=== PATIENT | female | born 1960 | race Two or more races ===

== ENCOUNTER 2022-09-25 12:48 | Inpatient (IN) | payer MEDICAID, OTHER ==
[~2022-09-25] VITALS: Ht 144.8 cm; Wt 92.7 kg
[2022-09-25] MEDS: SODIUM CHLOR 0.9% PF (SALINE LOCK) 10ML VIAL/SYR IV SCH (01:40)
[2022-09-25 14:42] LABS: Basophils # (auto) 0.1 10 ^3/uL (0-0.2); Eosinophils # (auto) 0.1 10 ^3/uL (0-0.8)
[2022-09-25 14:44] LABS: Basophils % (auto) 0.9 % (0.0-2.0); Eosinophils % (auto) 1.2 % (0.0-7.0); Hematocrit 39.9 % (36.0-46.0); Hemoglobin 12.6 g/dL (12.2-16.2); Lymphocytes # (auto) 1.3 10 ^3/uL (0.4-5.4); Lymphocytes % (auto) 12.1 % (10.0-50.0); Mean Corpuscular Hemoglobin 24.5 pg (28.0-32.0); Mean Corpuscular Hgb Conc. 31.7 g/dL (32.0-36.0); Mean Corpuscular Volume 77.5 fL (80.0-100.0); Monocytes # (auto) 0.5 10 ^3/uL (0-1.3); Monocytes % (auto) 4.7 % (0.0-12.0); Neutrophils # (auto) 8.7 10 ^3/uL (1.6-8.6); Neutrophils % (auto) 81.1 % (37.0-80.0); Nucleated Red Blood Cells % 0.1 %; Red Blood Cells 5.15 10^6/uL (4.0-5.20); White Blood Cell 10.7 10^3/uL (4.4-10.8)
[2022-09-25 14:55] LABS: Albumin 3.4 g/dL (3.4-5.0); Anion Gap 10 (5-15); Blood Urea Nitrogen 22 mg/dL (7-18); Calcium 9.3 mg/dL (8.5-10.1); Carbon Dioxide 26 mmol/L (21-32); Chloride 103 mmol/L (98-107); Glucose 198 mg/dL (74-106); Sodium 139 mmol/L (136-145)
[2022-09-25 14:58] LABS: Alanine Aminotransferase 58 U/L (13-56); Aspartate Aminotransferase 29 U/L (15-37); GFR African American 84 mL/min; GFR Non-African American 69 mL/min
[2022-09-25 15:01] LABS: Alkaline Phosphatase 59 U/L (45-117); Bilirubin, Total 0.5 mg/dL (0.2-1.0)
[2022-09-25 15:02] LABS: Lactic Acid w/Reflex 2.5 mmol/L (0.4-2.0)
[2022-09-25 15:18] LABS: Urine Bacteria FEW /hpf (None Seen); Urine Blood Negative /uL (Negative); Urine Hyaline Cast MOD /lpf (0 - 2); Urine Mucus FEW (None Seen); Urine Specific Gravity 1.027 (1.001-1.035); Urine WBC 17 /hpf (0 - 5)
[2022-09-25] MEDS ORDERED: cefTRIAXone 1GM/50ML D5W 50 ML IV ONE (21:45)
[2022-09-25] MEDS ORDERED: AZITHROMYCIN 500MG/ 250ML 250 ML IV ONE (21:45)
[2022-09-25] MEDS ORDERED: MORPHINE SULFATE INJ 2 MG/ml SYRG IV PRN (21:45)
[2022-09-25] MEDS ORDERED: FUROSEMIDE 40 MG/4 ML VIAL IV ONE (21:45)
[2022-09-25] MEDS ORDERED: DOCUSATE SOD 100 MG CAP PO PRN (21:45)
[2022-09-25] MEDS ORDERED: ONDANSETRON HCL 4 MG/2 ML VIAL IV PRN (21:45)
[2022-09-25] MEDS ORDERED: NITROGLYCERIN 0.4 MG SL TAB SL PRN (21:45)
[2022-09-25] MEDS ORDERED: DEXTROSE (50%) 50ML SYRG IV PRN (21:45)
[2022-09-25] MEDS: ACCU-CHEK COMFORT CURVE STRIP VI SCH (22:00)
[2022-09-25] MEDS ORDERED: InsuLIN REG 1unit/0.01ml Soln (100units/ml) SC SCH (22:00)
[2022-09-25] MEDS ORDERED: CARVEDILOL 3.125 MG TAB PO ONE (22:15)
[2022-09-26] VITALS (7 sets, daily range): BP systolic 90–117; BP diastolic 62–97
[2022-09-26] MEDS: FAMOTIDINE (10MG/ML) 2ML VL IV SCH ×3 (00:03→22:04)
[2022-09-26] MEDS: ASCORBIC ACID 500 MG TAB PO SCH ×2 (00:04→11:10)
[2022-09-26] MEDS ORDERED: PRAV20TA3 PO (04:13)
[2022-09-26] MEDS ORDERED: METF-370 PO (04:13)
[2022-09-26] MEDS ORDERED: DULO60CA PO (04:13)
[2022-09-26] MEDS ORDERED: ASPI-543 PO (04:13)
[2022-09-26] MEDS ORDERED: LISI20TA28 PO (04:13)
[2022-09-26] MEDS ORDERED: LETR2.5T6 PO (04:13)
[2022-09-26] MEDS ORDERED: INFLUENZA QUAD 2022-2023 0.5 ML SYRG IM ONE (04:15)
[2022-09-26] MEDS: SODIUM CHLOR 0.9% PF (SALINE LOCK) 10ML VIAL/SYR IV SCH ×3 (05:35→22:01)
[2022-09-26] MEDS: InsuLIN REG 1unit/0.01ml Soln (100units/ml) SC SCH ×3 (06:27→19:30)
[2022-09-26] MEDS: ACCU-CHEK COMFORT CURVE STRIP VI SCH ×4 (06:27→22:01)
[2022-09-26 07:22] LABS: Basophils # (auto) 0.1 10 ^3/uL (0-0.2); Basophils % (auto) 0.5 % (0.0-2.0); Eosinophils # (auto) 0 10 ^3/uL (0-0.8); Eosinophils % (auto) 0.3 % (0.0-7.0); Hematocrit 37.7 % (36.0-46.0); Hemoglobin 11.8 g/dL (12.2-16.2); Lymphocytes # (auto) 1.2 10 ^3/uL (0.4-5.4); Lymphocytes % (auto) 8.7 % (10.0-50.0); Mean Corpuscular Hemoglobin 24.3 pg (28.0-32.0); Mean Corpuscular Hgb Conc. 31.2 g/dL (32.0-36.0); Monocytes # (auto) 0.6 10 ^3/uL (0-1.3); Monocytes % (auto) 4.7 % (0.0-12.0); Neutrophils # (auto) 11.3 10 ^3/uL (1.6-8.6); Neutrophils % (auto) 85.8 % (37.0-80.0); Nucleated Red Blood Cells % 0.1 %; Red Blood Cells 4.83 10^6/uL (4.0-5.20); Red Cell Distribution Width 15.9 % (11.8-14.3); White Blood Cell 13.2 10^3/uL (4.4-10.8)
[2022-09-26 07:34] LABS: Potassium 4.7 mmol/L (3.5-5.1)
[2022-09-26 07:38] LABS: BUN/Creatinine Ratio 25.5; Calcium 8.8 mg/dL (8.5-10.1)
[2022-09-26 07:40] LABS: Bilirubin, Total 0.5 mg/dL (0.2-1.0); Total Protein 6.7 g/dL (6.4-8.2)
[2022-09-26] MEDS ORDERED: cefTRIAXone 1GM/50ML D5W 50 ML IV SCH (09:00)
[2022-09-26] MEDS ORDERED: AZITHROMYCIN 500MG/ 250ML 250 ML IV SCH (10:00)
[2022-09-26] MEDS ORDERED: ZINC SULFATE 220mg CAP or TAB PO SCH (10:00)
[2022-09-26] MEDS: ENOXAPARIN SOD 40 MG/0.4 ML SYRINGE SC SCH (11:12)
[2022-09-26] MEDS: CARVEDILOL 3.125 MG TAB PO SCH ×2 (11:12→22:04)
[2022-09-26] MEDS: FUROSEMIDE 40 MG/4 ML VIAL IV SCH (11:13)
[2022-09-26] MEDS ORDERED: metOLazone 5 MG TAB PO ONE (13:00)
[2022-09-26] MEDS ORDERED: IOHEXOL 350 MG/ML 100ML IJ ONE (15:45)
[2022-09-26] MEDS: PIPERACILLIN-TAZOB 3.375GM 100 ML IV SCH (18:39)
[2022-09-27] MEDS: PIPERACILLIN-TAZOB 3.375GM 100 ML IV SCH ×4 (00:37→18:06)
[2022-09-27 05:00] VITALS: BP 95/64
[2022-09-27 05:55] LABS: Basophils # (auto) 0.1 10 ^3/uL (0-0.2); Eosinophils # (auto) 0.3 10 ^3/uL (0-0.8); Hemoglobin 11.5 g/dL (12.2-16.2); Lymphocytes # (auto) 2.3 10 ^3/uL (0.4-5.4); Neutrophils # (auto) 6.2 10 ^3/uL (1.6-8.6); White Blood Cell 9.6 10^3/uL (4.4-10.8)
[2022-09-27 05:57] LABS: Basophils % (auto) 0.9 % (0.0-2.0); Eosinophils % (auto) 3.3 % (0.0-7.0); Hematocrit 36.1 % (36.0-46.0); Lymphocytes % (auto) 24.3 % (10.0-50.0); Mean Corpuscular Hemoglobin 24.5 pg (28.0-32.0); Mean Corpuscular Hgb Conc. 31.9 g/dL (32.0-36.0); Mean Corpuscular Volume 76.9 fL (80.0-100.0); Monocytes # (auto) 0.6 10 ^3/uL (0-1.3); Monocytes % (auto) 6.2 % (0.0-12.0); Neutrophils % (auto) 65.3 % (37.0-80.0); Nucleated Red Blood Cells % 0.4 %; Red Cell Distribution Width 15.9 % (11.8-14.3)
[2022-09-27] MEDS: SODIUM CHLOR 0.9% PF (SALINE LOCK) 10ML VIAL/SYR IV SCH ×3 (06:11→21:05)
[2022-09-27] MEDS: ACCU-CHEK COMFORT CURVE STRIP VI SCH ×4 (06:12→21:07)
[2022-09-27 06:21] LABS: BUN/Creatinine Ratio 27.6; Calcium 8.7 mg/dL (8.5-10.1); Potassium 3.3 mmol/L (3.5-5.1)
[2022-09-27] MEDS: InsuLIN REG 1unit/0.01ml Soln (100units/ml) SC SCH ×3 (06:46→18:01)
[2022-09-27 09:00] VITALS: BP 116/77
[2022-09-27] MEDS: FAMOTIDINE (10MG/ML) 2ML VL IV SCH ×2 (09:40→21:06)
[2022-09-27] MEDS: FUROSEMIDE 40 MG/4 ML VIAL IV SCH (09:40)
[2022-09-27] MEDS: CARVEDILOL 3.125 MG TAB PO SCH ×2 (09:41→21:06)
[2022-09-27] MEDS: ENOXAPARIN SOD 40 MG/0.4 ML SYRINGE SC SCH (09:41)
[2022-09-27] MEDS ORDERED: POTASSIUM EFFERVESENT TAB 25 MEQ PO ONE (12:30)
[2022-09-27 13:00] VITALS: BP 112/83
[2022-09-27 14:36] LABS: INR 1.18 (0.9-1.15)
[2022-09-27 17:00] VITALS: BP 105/69
[2022-09-27] MEDS: POTASSIUM CHL 20 Meq TABLET PO SCH (21:07)
[2022-09-27] MEDS: SACUBITRIL-VALSARTAN 24mg/26mg TAB PO SCH (21:07)
[2022-09-27 22:00] VITALS: BP 124/75
[2022-09-28] VITALS (16 sets, daily range): BP systolic 101–136; BP diastolic 69–93
[2022-09-28] MEDS: PIPERACILLIN-TAZOB 3.375GM 100 ML IV SCH ×3 (00:03→12:38)
[2022-09-28] MEDS: SODIUM CHLOR 0.9% PF (SALINE LOCK) 10ML VIAL/SYR IV SCH ×2 (05:02→16:06)
[2022-09-28 05:37] LABS: INR 1.24 (0.9-1.15)
[2022-09-28 05:42] LABS: Calcium 8.5 mg/dL (8.5-10.1); Potassium 3.7 mmol/L (3.5-5.1)
[2022-09-28 05:45] LABS: BUN/Creatinine Ratio 26.5
[2022-09-28] MEDS: InsuLIN REG 1unit/0.01ml Soln (100units/ml) SC SCH ×2 (06:51→12:09)
[2022-09-28] MEDS: ACCU-CHEK COMFORT CURVE STRIP VI SCH ×2 (06:51→12:06)
[2022-09-28] MEDS ORDERED: IODIXANOL 320MG/ML 100ML BTL IV ONE (08:38)
[2022-09-28] MEDS ORDERED: fentaNYL CITRATE 100 MCG/2 ML VL ONE (08:42)
[2022-09-28] MEDS ORDERED: ANGIOMAX 250 MG VIAL IV ONE (08:42)
[2022-09-28] MEDS ORDERED: SODIUM CHL 0.9% 0 ML ONE (08:42)
[2022-09-28] MEDS ORDERED: MIDAZOLAM HCL 2MG/2ML 2ml VIAL (1mg/ml) ONE (08:42)
[2022-09-28] MEDS ORDERED: HEPARIN SODIUM (PORCINE) 5000 UNITS/ML 1ML VIAL ONE (08:42)
[2022-09-28] MEDS ORDERED: VERAPAMIL 2.5MG/ML INJ 2ML VIAL IV ONE (08:43)
[2022-09-28] MEDS: POTASSIUM CHL 20 Meq TABLET PO SCH (10:00)
[2022-09-28] MEDS: SACUBITRIL-VALSARTAN 24mg/26mg TAB PO SCH (10:00)
[2022-09-28] MEDS: ENOXAPARIN SOD 40 MG/0.4 ML SYRINGE SC SCH (10:00)
[2022-09-28] MEDS: CARVEDILOL 3.125 MG TAB PO SCH (10:00)
[2022-09-28] MEDS: FAMOTIDINE (10MG/ML) 2ML VL IV SCH (10:00)
[2022-09-28] MEDS: FUROSEMIDE 40 MG/4 ML VIAL IV SCH (10:00)
[2022-09-28] MEDS ORDERED: CAR3125T PO (15:36)
[2022-09-28] MEDS ORDERED: AMOX500T86 PO (15:36)
[2022-09-28] MEDS ORDERED: SACU1TAB PO (15:36)
[2022-09-28] MEDS ORDERED: EMPA1TAB PO (15:36)
[2022-09-28] MEDS ORDERED: FURO1TAB31 PO (15:43)
[2022-09-29] MEDS ORDERED: EMPAGLIFLOZIN 10 MG TAB PO SCH (07:00)
[2022-09-29 09:13] LABS: Hepatitis B Surface Antibody Negative (Negative)
[2022-09-29 11:41] LABS: Hepatitis C Antibody Negative (Negative)
== END 2022-09-28 18:10 | disposition home or self-care (01) | DRG 192 ==
LOC: ER 12:48 → OVERFLOW 21:40 → TELE-EAST 09-26 01:37
PROVIDERS: ADMIT Nurse Practitioner Family; ATTEND Hospitalist
PROC: 3E02340 Introduction of Influenza Vaccine into Muscle, Percutaneous Approach (ICD-10-PCS; 2022-09-26)
PROC: B2111ZZ Fluoroscopy of Multiple Coronary Arteries using Low Osmolar Contrast (ICD-10-PCS; principal; 2022-09-28)
DX: I11.0 Hypertensive heart disease with heart failure (principal); J96.01 Acute respiratory failure with hypoxia; I42.8 Other cardiomyopathies; E11.65 Type 2 diabetes mellitus with hyperglycemia; Z20.822 Contact with and (suspected) exposure to COVID-19; N39.0 Urinary tract infection, site not specified; C50.919 Malignant neoplasm of unspecified site of unspecified female breast; E66.9 Obesity, unspecified; R00.0 Tachycardia, unspecified; Z79.899 Other long term (current) drug therapy; Z85.3 Personal history of malignant neoplasm of breast; Z90.710 Acquired absence of both cervix and uterus; Z83.3 Family history of diabetes mellitus; Z79.82 Long term (current) use of aspirin; Z68.41 Body mass index [BMI] 40.0-44.9, adult; Z23 Encounter for immunization; I50.21 Acute systolic (congestive) heart failure
CPT/HCPCS: 36415; 71045; 71275; 76604; 80048; 80053; 81001; 82962; 83036; 83605; 83880; 84484; 85025; 85379; 85610; 85730; 86706; 86803; 87040; 87086; 87340; 87426; 93005; 93306; 93454; 96365; 96367; 96372; 96375; 99152; G0378; J0696; J1815; J2250; J2405; J2543; J3490; Q9967

== ENCOUNTER 2022-11-22 14:25 | Inpatient (IN) | payer MEDICAID ==
[~2022-11-22] VITALS: Ht 142.2 cm; Wt 91.6 kg
[~2022-11-22 14:25] MED LIST: AMOX500T86 PO; ASPI-543 PO; CAR3125T PO; DULO60CA PO; EMPA1TAB PO; FURO1TAB31 PO; LETR2.5T6 PO; PRAV20TA3 PO; SACU1TAB PO
[2022-11-22 15:43] LABS: Albumin 3.1 g/dL (3.4-5.0); Calcium 9.2 mg/dL (8.5-10.1); Potassium 4.5 mmol/L (3.5-5.1)
[2022-11-22 15:44] LABS: BUN/Creatinine Ratio 23.7 (10.0-20.0)
[2022-11-22 15:45] LABS: Basophils # (auto) 0.1 10 ^3/uL (0-0.2); Eosinophils # (auto) 0.2 10 ^3/uL (0-0.8); Hemoglobin 14.4 g/dL (12.2-16.2); Lymphocytes # (auto) 1.5 10 ^3/uL (0.4-5.4); Mean Corpuscular Volume 76.9 fL (80.0-100.0); Monocytes # (auto) 0.4 10 ^3/uL (0-1.3); Red Cell Distribution Width 18.9 % (11.8-14.3)
[2022-11-22 15:47] LABS: Basophils % (auto) 0.7 % (0.0-2.0); Eosinophils % (auto) 2.3 % (0.0-7.0); Hematocrit 45.4 % (36.0-46.0); Mean Corpuscular Hemoglobin 24.4 pg (28.0-32.0); Mean Corpuscular Hgb Conc. 31.7 g/dL (32.0-36.0); Neutrophils # (auto) 5.4 10 ^3/uL (1.6-8.6); Nucleated Red Blood Cells % 0.2 %; Total Protein 6.8 g/dL (6.4-8.2); White Blood Cell 7.5 10^3/uL (4.4-10.8)
[2022-11-22] MEDS ORDERED: ALBUTEROL SULF 2.5 MG/0.5ML(0.5%) NEB SOLN NEB ONE (20:00)
[2022-11-22] MEDS ORDERED: FUROSEMIDE 100 MG/10ML VIAL IV ONE (20:00)
[2022-11-22] MEDS ORDERED: TEMAZEPAM 15 MG CAP PO PRN (21:15)
[2022-11-22] MEDS ORDERED: ACETAMINOPHEN 325 MG TAB PO PRN (21:15)
[2022-11-22] MEDS ORDERED: DEXTROSE (50%) 50ML SYRG IV PRN (21:15)
[2022-11-22] MEDS ORDERED: NITROGLYCERIN 0.4 MG SL TAB SL PRN (21:15)
[2022-11-22] MEDS ORDERED: ONDANSETRON HCL 4 MG/2 ML VIAL IV PRN (21:15)
[2022-11-22] MEDS ORDERED: MORPHINE SULFATE INJ 2 MG/ml SYRG IV PRN (21:15)
[2022-11-22] MEDS: SACUBITRIL-VALSARTAN 24mg/26mg TAB PO SCH (23:59)
[2022-11-23] MEDS: CARVEDILOL 3.125 MG TAB PO SCH ×4 (00:01→22:25)
[2022-11-23] MEDS: ACCU-CHEK COMFORT CURVE STRIP VI SCH ×5 (00:08→22:29)
[2022-11-23] MEDS: InsuLIN REG 1unit/0.01ml Soln (100units/ml) SC SCH ×5 (00:18→22:34)
[2022-11-23 03:13] LABS: Urine Bacteria NONE SEEN /hpf (None Seen); Urine Blood Negative /uL (Negative); Urine Specific Gravity 1.006 (1.001-1.035); Urine WBC 1 /hpf (0 - 5)
[2022-11-23] MEDS ORDERED: FUROSEMIDE 20 MG/2 ML VIAL IV SCH (06:00)
[2022-11-23 06:07] LABS: Basophils # (auto) 0.1 10 ^3/uL (0-0.2); Eosinophils # (auto) 0.2 10 ^3/uL (0-0.8); Hemoglobin 13.7 g/dL (12.2-16.2); Mean Corpuscular Volume 76.5 fL (80.0-100.0); Monocytes # (auto) 0.5 10 ^3/uL (0-1.3); White Blood Cell 7.4 10^3/uL (4.4-10.8)
[2022-11-23 06:09] LABS: Basophils % (auto) 0.8 % (0.0-2.0); Eosinophils % (auto) 2.3 % (0.0-7.0); Hematocrit 42.8 % (36.0-46.0); Lymphocytes # (auto) 1.7 10 ^3/uL (0.4-5.4); Lymphocytes % (auto) 23.1 % (10.0-50.0); Mean Corpuscular Hemoglobin 24.5 pg (28.0-32.0); Monocytes % (auto) 6.6 % (0.0-12.0); Neutrophils % (auto) 67.2 % (37.0-80.0); Nucleated Red Blood Cells % 0.6 %; Red Blood Cells 5.59 10^6/uL (4.0-5.20); Red Cell Distribution Width 18.6 % (11.8-14.3)
[2022-11-23 06:28] LABS: Albumin 2.9 g/dL (3.4-5.0); Calcium 8.9 mg/dL (8.5-10.1); Potassium 3.6 mmol/L (3.5-5.1)
[2022-11-23 06:33] LABS: BUN/Creatinine Ratio 26.8 (10.0-20.0); Bilirubin, Total 0.7 mg/dL (0.2-1.0); Total Protein 6.3 g/dL (6.4-8.2)
[2022-11-23] MEDS: ASPirin 81 mg TAB PO SCH (11:11)
[2022-11-23] MEDS: SACUBITRIL-VALSARTAN 24mg/26mg TAB PO SCH ×2 (11:16→22:24)
[2022-11-23] MEDS: DULoxetine HCL 30 MG CAP PO SCH (11:16)
[2022-11-23] MEDS: PANTOPRAZOLE 40 MG TAB PO SCH (11:17)
[2022-11-23] MEDS: ENOXAPARIN SOD 40 MG/0.4 ML SYRINGE SC SCH (11:17)
[2022-11-23] MEDS: metOLazone 5 MG TAB PO ONE ×2 (14:16→14:22)
[2022-11-23] MEDS: FUROSEMIDE 20 MG/2 ML VIAL IV SCH ×2 (14:47→18:00)
[2022-11-23] MEDS: ATORVASTATIN 20 MG TAB PO SCH ×2 (22:24)
[2022-11-24] MEDS: FUROSEMIDE 20 MG/2 ML VIAL IV SCH (06:00)
[2022-11-24] MEDS: ACCU-CHEK COMFORT CURVE STRIP VI SCH ×2 (06:37→11:50)
[2022-11-24] MEDS: InsuLIN REG 1unit/0.01ml Soln (100units/ml) SC SCH ×2 (06:37→11:51)
[2022-11-24] MEDS ORDERED: EMPAGLIFLOZIN 10 MG TAB PO SCH (07:00)
[2022-11-24 09:00] VITALS: BP 106/77
[2022-11-24] MEDS: ASPirin 81 mg TAB PO SCH (09:08)
[2022-11-24] MEDS: PANTOPRAZOLE 40 MG TAB PO SCH (09:09)
[2022-11-24] MEDS: SACUBITRIL-VALSARTAN 24mg/26mg TAB PO SCH (09:09)
[2022-11-24] MEDS: CARVEDILOL 3.125 MG TAB PO SCH (09:09)
[2022-11-24] MEDS: DULoxetine HCL 30 MG CAP PO SCH (09:09)
[2022-11-24] MEDS: ENOXAPARIN SOD 40 MG/0.4 ML SYRINGE SC SCH (09:09)
[2022-11-24 10:45] VITALS: BP 106/77
[2022-11-24] MEDS ORDERED: LETROZOLE 2.5MG TAB PO SCH (11:15)
[2022-11-24 12:33] VITALS: BP 94/68
[2022-11-24] MEDS ORDERED: PRAV20TA3 PO (13:13)
[2022-11-24] MEDS ORDERED: metOLazone 5 MG TAB PO SCH (15:15)
[2022-11-24] MEDS ORDERED: METO5TAB5 PO (16:25)
[2022-11-24 17:00] VITALS: BP 96/67
== END 2022-11-24 17:02 | disposition home or self-care (01) | DRG 194 ==
LOC: ER 14:25 → TELE 21:22 → TELE-WESTW 11-24 08:52
PROVIDERS: ADMIT Nurse Practitioner; ATTEND Internal Medicine
DX: I13.0 Hypertensive heart and chronic kidney disease with heart failure and stage 1 through stage 4 chronic kidney disease, or unspecified chronic kidney disease (principal); E44.0 Moderate protein-calorie malnutrition; I42.0 Dilated cardiomyopathy; E11.22 Type 2 diabetes mellitus with diabetic chronic kidney disease; I50.23 Acute on chronic systolic (congestive) heart failure; E66.01 Morbid (severe) obesity due to excess calories; Z20.822 Contact with and (suspected) exposure to COVID-19; N18.9 Chronic kidney disease, unspecified; Z82.49 Family history of ischemic heart disease and other diseases of the circulatory system; Z83.3 Family history of diabetes mellitus; Z85.3 Personal history of malignant neoplasm of breast; Z92.21 Personal history of antineoplastic chemotherapy; Z92.3 Personal history of irradiation; Z68.42 Body mass index [BMI] 45.0-49.9, adult; Z98.891 History of uterine scar from previous surgery
CPT/HCPCS: 36415; 71045; 80053; 81001; 82962; 83880; 84484; 85025; 87426; 93005; 94640; G0378; J1815

== ENCOUNTER → 2022-11-26 | Outpatient (CLI) | payer MEDICAID ==
[~2022-11-26] VITALS: Ht 142.2 cm; Wt 93.4 kg
[~2022-11-26] MED LIST changes: -AMOX500T86 PO; +METO5TAB5 PO
== END | disposition home or self-care (01) ==
LOC: Rad HDHVI 09:20
PROVIDERS: ATTEND Internal Medicine Cardiovascular Disease
DX: I11.0 Hypertensive heart disease with heart failure (principal); I50.23 Acute on chronic systolic (congestive) heart failure; R06.02 Shortness of breath; E11.9 Type 2 diabetes mellitus without complications; E78.5 Hyperlipidemia, unspecified
CPT/HCPCS: 78472; 96374; 96375; A9505

== ENCOUNTER → 2022-11-30 | Outpatient (CLI) | payer MEDICAID | END | disposition home or self-care (01) | LOC: Rad HDHVI 15:06 | PROVIDERS: ATTEND Internal Medicine Cardiovascular Disease | DX: I08.1 Rheumatic disorders of both mitral and tricuspid valves (principal); I11.0 Hypertensive heart disease with heart failure; I50.23 Acute on chronic systolic (congestive) heart failure | CPT/HCPCS: 93306 ==

== ENCOUNTER → 2023-01-15 | Outpatient (CLI) | payer MEDICAID ==
[~2023-01-15] MED LIST changes: +CARV3.1240 PO; +DULO1CAP5 PO; -DULO60CA PO; +DULO60CA41 PO; +LETR2.5T PO; +METO10TA7 PO
[2023-01-15 09:45] VITALS: BP 100/60
[2023-01-15 10:08] VITALS: BP 94/58
== END | disposition home or self-care (01) ==
LOC: CHF HDHVI 09:05
PROVIDERS: ATTEND Internal Medicine Cardiovascular Disease
DX: Z01.818 Encounter for other preprocedural examination (principal); R94.31 Abnormal electrocardiogram [ECG] [EKG]; R00.0 Tachycardia, unspecified; I51.7 Cardiomegaly; R00.2 Palpitations; I50.43 Acute on chronic combined systolic (congestive) and diastolic (congestive) heart failure; I42.0 Dilated cardiomyopathy
CPT/HCPCS: 93005; G0463

== ENCOUNTER 2023-01-21 09:07 | Inpatient (IN) | payer MEDICAID ==
[2023-01-15 12:43] LABS: Eosinophils # (auto) 0.2 10 ^3/uL (0-0.8); Nucleated Red Blood Cells % 0.3 %
[2023-01-15 12:45] LABS: Basophils # (auto) 0.1 10 ^3/uL (0-0.2); Basophils % (auto) 1.2 % (0.0-2.0); Eosinophils % (auto) 2.5 % (0.0-7.0); Hematocrit 48.6 % (36.0-46.0); Hemoglobin 15.6 g/dL (12.2-16.2); Lymphocytes # (auto) 1.2 10 ^3/uL (0.4-5.4); Lymphocytes % (auto) 14.6 % (10.0-50.0); Mean Corpuscular Hemoglobin 24.7 pg (28.0-32.0); Mean Corpuscular Hgb Conc. 32.1 g/dL (32.0-36.0); Mean Corpuscular Volume 76.9 fL (80.0-100.0); Monocytes # (auto) 0.4 10 ^3/uL (0-1.3); Monocytes % (auto) 4.8 % (0.0-12.0); Neutrophils # (auto) 6.3 10 ^3/uL (1.6-8.6); Neutrophils % (auto) 76.9 % (37.0-80.0); Red Blood Cells 6.32 10^6/uL (4.0-5.20); Red Cell Distribution Width 19.5 % (11.8-14.3); White Blood Cell 8.1 10^3/uL (4.4-10.8)
[2023-01-15 12:58] LABS: INR 1.03 (0.9-1.15); Partial Thromboplastin Time 26.2 sec (24.6-33.4)
[2023-01-15 13:15] LABS: BUN/Creatinine Ratio 23.8 (10.0-20.0); Calcium 8.9 mg/dL (8.5-10.1); Potassium 3.9 mmol/L (3.5-5.1)
[2023-01-21] VITALS (9 sets, daily range): BP systolic 98–109; BP diastolic 67–77
[~2023-01-21] VITALS: Ht 142.2 cm; Wt 81.3 kg
[~2023-01-21 09:07] MED LIST changes: -CARV3.1240 PO; -DULO1CAP5 PO; -LETR2.5T PO; -METO10TA7 PO
[2023-01-21] MEDS ORDERED: VANCOMYCIN 1GM/250ML 250 ML IV ONE ×2 (11:00→13:18)
[2023-01-21] MEDS ORDERED: LIDOCAINE 2%HCL (LOCAL ANESTH.) INJ 20ML MDV ONE (13:13)
[2023-01-21] MEDS ORDERED: MIDAZOLAM HCL 2MG/2ML 2ml VIAL (1mg/ml) ONE (13:18)
[2023-01-21] MEDS ORDERED: fentaNYL CITRATE 100 MCG/2 ML VL ONE (13:18)
[2023-01-21] MEDS ORDERED: VANCOMYCIN HCL 1000 MG VL ONE (13:18)
[2023-01-21] MEDS ORDERED: diphenhdrAMINE HCL 50 MG/1 ML VL ONE (13:49)
[2023-01-21] MEDS ORDERED: CARV3.1240 PO (14:36)
[2023-01-21] MEDS ORDERED: DULO1CAP5 PO (14:36)
[2023-01-21] MEDS ORDERED: SACU1TAB PO (14:37)
[2023-01-21] MEDS ORDERED: EMPA1TAB PO (14:45)
[2023-01-21] MEDS ORDERED: LETR2.5T PO (14:47)
[2023-01-21] MEDS ORDERED: METO10TA7 PO (14:47)
[2023-01-21] MEDS ORDERED: FURO1TAB31 PO (14:48)
[2023-01-21] MEDS ORDERED: FUROSEMIDE 20 MG/2 ML VIAL ONE (14:48)
[2023-01-21] MEDS ORDERED: DEXTROSE (50%) 50ML SYRG IV PRN (15:45)
[2023-01-21] MEDS ORDERED: MORPHINE SULFATE INJ 2 MG/ml SYRG IV PRN (15:45)
[2023-01-21] MEDS ORDERED: NITROGLYCERIN 0.4 MG SL TAB SL PRN (15:45)
[2023-01-21] MEDS: InsuLIN REG 1unit/0.01ml Soln (100units/ml) SC SCH (17:42)
[2023-01-21] MEDS: ACCU-CHEK COMFORT CURVE STRIP VI SCH ×2 (17:43→21:44)
[2023-01-21] MEDS: ceFAZolin 1GM/50ML 50 ML IV SCH (17:43)
[2023-01-21] MEDS: CARVEDILOL 3.125 MG TAB PO SCH (21:43)
[2023-01-21] MEDS: SODIUM CHLOR 0.9% PF (SALINE LOCK) 10ML VIAL/SYR IV SCH (21:43)
[2023-01-21] MEDS ORDERED: PRAVASTATIN SODIUM 20 MG TAB PO SCH (22:00)
[2023-01-21] MEDS ORDERED: InsuLIN REG 1unit/0.01ml Soln (100units/ml) SC SCH (22:00)
[2023-01-21] MEDS ORDERED: VANCOMYCIN 1GM/250ML 250 ML IV SCH (22:00)
[2023-01-22 05:00] VITALS: BP 96/68
[2023-01-22] MEDS: SODIUM CHLOR 0.9% PF (SALINE LOCK) 10ML VIAL/SYR IV SCH (06:02)
[2023-01-22] MEDS: InsuLIN REG 1unit/0.01ml Soln (100units/ml) SC SCH ×2 (06:55→11:49)
[2023-01-22] MEDS: ACCU-CHEK COMFORT CURVE STRIP VI SCH ×2 (06:56→11:49)
[2023-01-22] MEDS: ceFAZolin 1GM/50ML 50 ML IV SCH ×2 (08:26)
[2023-01-22] MEDS: CARVEDILOL 3.125 MG TAB PO SCH (08:28)
[2023-01-22 09:23] VITALS: BP 116/79
[2023-01-22] MEDS ORDERED: FUROSEMIDE 40 MG TAB PO SCH (10:00)
[2023-01-22] MEDS ORDERED: metOLazone 5 MG TAB PO SCH (10:00)
[2023-01-22 13:02] VITALS: BP 93/70
[2023-01-22 15:12] VITALS: BP 116/79
== END 2023-01-22 17:00 | disposition home or self-care (01) | DRG 179 ==
LOC: CATH 09:07 → TELE-EAST 17:28
PROVIDERS: ADMIT Internal Medicine Cardiovascular Disease; ATTEND Internal Medicine Cardiovascular Disease
PROC: 0JH608Z Insertion of Defibrillator Generator into Chest Subcutaneous Tissue and Fascia, Open Approach (ICD-10-PCS; principal; 2023-01-22)
PROC: 02HL3KZ Insertion of Defibrillator Lead into Left Ventricle, Percutaneous Approach (ICD-10-PCS; 2023-01-22)
PROC: 02H63JZ Insertion of Pacemaker Lead into Right Atrium, Percutaneous Approach (ICD-10-PCS; 2023-01-22)
PROC: B5171ZZ Fluoroscopy of Left Subclavian Vein using Low Osmolar Contrast (ICD-10-PCS; 2023-01-22)
DX: I42.0 Dilated cardiomyopathy (principal); J81.1 Chronic pulmonary edema; J90 Pleural effusion, not elsewhere classified; I50.22 Chronic systolic (congestive) heart failure; I11.0 Hypertensive heart disease with heart failure; E11.40 Type 2 diabetes mellitus with diabetic neuropathy, unspecified; I51.7 Cardiomegaly; Z01.812 Encounter for preprocedural laboratory examination
CPT/HCPCS: 33208; 36415; 71045; 80048; 82962; 85025; 85610; 85730; 93005; 99152; 99153; G0378; J0690; J1815; J2250

== ENCOUNTER → 2023-03-10 | Outpatient (CLI) | payer MEDICAID ==
[~2023-03-10] MED LIST changes: -CAR3125T PO; +CARV3.1240 PO; +DULO1CAP5 PO; -DULO60CA41 PO; +LETR2.5T PO; -LETR2.5T6 PO; +METO10TA7 PO; -METO5TAB5 PO
== END | disposition home or self-care (01) ==
LOC: Rad HDHVI 09:05
PROVIDERS: ATTEND Internal Medicine Cardiovascular Disease
DX: I08.8 Other rheumatic multiple valve diseases (principal); R00.2 Palpitations; I11.9 Hypertensive heart disease without heart failure
CPT/HCPCS: 93306

== ENCOUNTER → 2023-04-13 | Outpatient (CLI) | payer MEDICAID ==
[~2023-04-13] VITALS: Ht 30.5 cm; Wt 0.5 kg
[~2023-04-13] MED LIST changes: +BUMETANIDE 1mg/4ml VIAL (0.25mg/ml) ONE; +BUMETANIDE 2.5mg/10ml (0.25 mg/ml) INJ IV ONE; +POTASSIUM CHL 10 Meq TABLET PO ONE; +POTASSIUM CHL 20 Meq TABLET PO ONE
[2023-04-13 10:23] VITALS: BP 106/73; PULSE 97; RESP 18; O2SAT 97
[2023-04-13 11:00] VITALS: BP 99/68; PULSE 92; RESP 18; O2SAT 97
== END | disposition home or self-care (01) ==
LOC: CHF HDHVI 10:12
PROVIDERS: ATTEND Internal Medicine Cardiovascular Disease
DX: I11.0 Hypertensive heart disease with heart failure (principal); I50.43 Acute on chronic combined systolic (congestive) and diastolic (congestive) heart failure; I42.0 Dilated cardiomyopathy
CPT/HCPCS: 96374; G0463; J3490

== ENCOUNTER → 2023-04-20 | Outpatient (CLI) | payer MEDICAID ==
[2023-04-20 09:08] VITALS: BP 110/77; PULSE 104; RESP 20; O2SAT 98
[2023-04-20 10:03] VITALS: BP 109/75; PULSE 103; RESP 20; O2SAT 98
== END | disposition home or self-care (01) ==
LOC: CHF HDHVI 09:04
PROVIDERS: ATTEND Internal Medicine Cardiovascular Disease
DX: I50.9 Heart failure, unspecified (principal)
CPT/HCPCS: 96374; G0463; J3490

== ENCOUNTER → 2023-10-13 | Outpatient (CLI) | payer MEDICAID ==
[~2023-10-13] MED LIST changes: -BUMETANIDE 1mg/4ml VIAL (0.25mg/ml) ONE; -BUMETANIDE 2.5mg/10ml (0.25 mg/ml) INJ IV ONE; -POTASSIUM CHL 10 Meq TABLET PO ONE; -POTASSIUM CHL 20 Meq TABLET PO ONE
== END | disposition home or self-care (01) ==
LOC: Rad HDHVI 08:00
PROVIDERS: ATTEND Internal Medicine Cardiovascular Disease
DX: I08.1 Rheumatic disorders of both mitral and tricuspid valves (principal); I11.9 Hypertensive heart disease without heart failure; R00.2 Palpitations
CPT/HCPCS: 93306

== ENCOUNTER → 2023-11-08 | Outpatient (CLI) | payer MEDICAID | END | disposition home or self-care (01) | LOC: Rad HDHVI 08:33 | PROVIDERS: ATTEND Internal Medicine Cardiovascular Disease | DX: R51.9 Headache, unspecified (principal) | CPT/HCPCS: 70450 ==

== ENCOUNTER 2024-02-17 15:21 | Emergency (ER) | payer MEDICAID ==
[~2024-02-17] VITALS: Ht 144.8 cm; Wt 86.7 kg
[2024-02-17 16:21] LABS: Urine Bacteria None Seen /hpf (None Seen)
[2024-02-17 16:32] LABS: Urine Blood Negative /uL (Negative); Urine Clarity Clear (Clear); Urine Color Light-Yellow (Yellow); Urine Protein, UAD Negative (Negative); Urine Specific Gravity 1.026 (1.001-1.035); Urine Urobilinogen Normal (Negative); Urine WBC 1 /hpf (0 - 5)
[2024-02-17] MEDS: HYDROcodone-ACET 5/325MG TAB PO ONE (17:17)
[2024-02-17] MEDS ORDERED: IBUP-1456 PO (17:51)
[2024-02-17] MEDS ORDERED: METH-1182 PO (17:51)
[2024-02-17 18:01] VITALS: BP 119/62; PULSE 81; RESP 16; TEMP 97.6; O2SAT 95
== END 2024-02-17 18:03 | disposition home or self-care (01) ==
LOC: ER 15:21
DX: M51.16 Intervertebral disc disorders with radiculopathy, lumbar region (principal); I10 Essential (primary) hypertension; E11.9 Type 2 diabetes mellitus without complications; K80.20 Calculus of gallbladder without cholecystitis without obstruction; Z85.9 Personal history of malignant neoplasm, unspecified; Z98.890 Other specified postprocedural states; Z79.899 Other long term (current) drug therapy
CPT/HCPCS: 72100; 81001; 82962

== ENCOUNTER → 2024-04-05 | Outpatient (CLI) | payer MEDICAID ==
[~2024-04-05] MED LIST changes: +IBUP-1456 PO; +METH-1182 PO
== END | disposition home or self-care (01) ==
LOC: Rad HDHVI 08:06
PROVIDERS: ATTEND Internal Medicine Cardiovascular Disease
DX: R06.02 Shortness of breath (principal)
CPT/HCPCS: 93306

== ENCOUNTER 2024-06-14 19:18 | Inpatient (IN) | payer MEDICAID ==
[~2024-06-14] VITALS: Ht 142.2 cm; Wt 83.5 kg
[~2024-06-14 19:18] MED LIST changes: +ALEN70TA74 PO; +CARV12.544 PO; +DIGO0.12 PO; +IVAB5TAB2 PO; +SEMA2INJ3 SC
[2024-06-14 21:08] LABS: COVID19 ANTIGEN SOFIA FIA NEGATIVE (NEGATIVE); Rapid Influenza A Negative (Negative); Rapid Influenza B Negative (Negative)
[2024-06-14 21:14] LABS: Urine Bacteria None Seen /hpf (None Seen)
[2024-06-14 21:25] LABS: Urine Blood Negative /uL (Negative); Urine Clarity Clear (Clear); Urine Color Light-Yellow (Yellow); Urine Protein, UAD Negative (Negative); Urine Specific Gravity 1.032 (1.001-1.035); Urine Urobilinogen Normal (Negative); Urine WBC 2 /hpf (0 - 5); Urine pH 6.5 (5.0-9.0)
[2024-06-14 22:08] LABS: Basophils # (auto) 0.1 10 ^3/uL (0-0.2); Basophils % (auto) 0.5 % (0.0-2.0); Eosinophils # (auto) 0.1 10 ^3/uL (0-0.8); Eosinophils % (auto) 0.6 % (0.0-7.0); Hematocrit 45.1 % (36.0-46.0); Mean Corpuscular Hemoglobin 27.4 pg (28.0-32.0); Mean Corpuscular Hgb Conc. 33.2 g/dL (32.0-36.0); Mean Corpuscular Volume 82.6 fL (80.0-100.0); Monocytes # (auto) 0.8 10 ^3/uL (0-1.3); Monocytes % (auto) 6.1 % (0.0-12.0); Neutrophils # (auto) 10.5 10 ^3/uL (1.6-8.6); Neutrophils % (auto) 84.8 % (37.0-80.0); Nucleated Red Blood Cells % 0.3 %; Platelet Count (auto) 188 10^3/uL (140-450); Red Blood Cells 5.46 10^6/uL (4.0-5.20); Red Cell Distribution Width 14.9 % (11.8-14.3); White Blood Cell 12.4 10^3/uL (4.4-10.8)
[2024-06-14 22:18] LABS: Chloride 104 mmol/L (98-107); Potassium 3.7 mmol/L (3.5-5.1); Sodium 136 mmol/L (136-145)
[2024-06-14 22:19] LABS: Anion Gap 7 (5-15); Carbon Dioxide 25 mmol/L (20-31)
[2024-06-14 22:20] LABS: Calcium 9.9 mg/dL (8.7-10.4)
[2024-06-14 22:25] LABS: BUN/Creatinine Ratio 17.2 (10.0-20.0); Blood Urea Nitrogen 16 mg/dL (9-23); Glucose 142 mg/dL (74-106)
[2024-06-14] MEDS ORDERED: HYDROcodone-ACET 5/325MG TAB PO PRN (22:45)
[2024-06-14] MEDS ORDERED: DEXTROSE (50%) 50ML SYRG IV PRN (22:45)
[2024-06-14] MEDS ORDERED: ACETAMINOPHEN 325 MG TAB PO PRN (22:45)
[2024-06-14] MEDS ORDERED: ONDANSETRON HCL 4 MG/2 ML VIAL IV PRN (22:45)
[2024-06-14] MEDS: methylPREDNISolone SOD SUCC 125 MG/2 ML VL IV ONE (22:54)
[2024-06-14] MEDS: cefTRIAXone 1GM/50ML D5W 50 ML IV ONE (22:54)
[2024-06-14] MEDS: CLINDAMYCIN 600MG IV 50 ML IV ONE (23:07)
[2024-06-15] MEDS: CLINDAMYCIN 600MG IV 50 ML IV SCH (05:39)
[2024-06-15] MEDS: ACCU-CHEK COMFORT CURVE STRIP VI SCH (06:10)
[2024-06-15] MEDS: InsuLIN REG 1unit/0.01ml Soln (100units/ml) SC SCH (06:14)
[2024-06-15 06:37] LABS: Chloride 105 mmol/L (98-107); Potassium 4.3 mmol/L (3.5-5.1); Sodium 134 mmol/L (136-145)
[2024-06-15 06:38] LABS: Anion Gap 9 (5-15); Calcium 9.9 mg/dL (8.7-10.4); Carbon Dioxide 20 mmol/L (20-31)
[2024-06-15 06:43] LABS: Blood Urea Nitrogen 13 mg/dL (9-23); Glucose 160 mg/dL (74-106)
[2024-06-15 06:59] LABS: Hemoglobin 14.9 g/dL (12.2-16.2); Mean Corpuscular Hemoglobin 27.9 pg (28.0-32.0); Mean Corpuscular Hgb Conc. 33.1 g/dL (32.0-36.0); Mean Corpuscular Volume 84.2 fL (80.0-100.0); Platelet Count (auto) 186 10^3/uL (140-450); Red Blood Cells 5.35 10^6/uL (4.0-5.20); Red Cell Distribution Width 15.3 % (11.8-14.3); White Blood Cell 12.1 10^3/uL (4.4-10.8)
[2024-06-15 07:05] LABS: Band Neutrophils % (manual) 0; Basophils % (manual) 0 (0.0-2.0); Blast Cells 0; Eosinophils % (manual) 0 (0-7); Metamyelocytes % 0; Myelocytes % 0; Promyelocytes % 0; Reactive Lymphocytes 0
[2024-06-15 08:15] VITALS: PULSE 71; RESP 16; O2SAT 96
[2024-06-15 08:36] LABS: Lymphocytes % (manual) 6 (10.0-50.0); Monocytes % (manual) 3 (0-12)
[2024-06-15 08:37] LABS: Platelet Estimate Adequate
[2024-06-15] MEDS: cefTRIAXone 1GM/50ML D5W 50 ML IV SCH (09:30)
[2024-06-15] MEDS: CARVEDILOL 3.125 MG TAB PO SCH (10:00)
[2024-06-15] MEDS: FUROSEMIDE 40 MG TAB PO SCH (10:06)
[2024-06-15] MEDS: EMPAGLIFLOZIN 10 MG TAB PO SCH (10:08)
[2024-06-15] MEDS: ENOXAPARIN SOD 40 MG/0.4 ML SYRINGE SC SCH (10:10)
[2024-06-15] MEDS: SACUBITRIL-VALSARTAN 24mg/26mg TAB PO SCH (10:11)
[2024-06-15 12:14] VITALS: BP 124/61; PULSE 66; RESP 20; TEMP 97.8; O2SAT 96
[2024-06-15 16:28] VITALS: BP 109/62; PULSE 84; TEMP 98.4; O2SAT 94
[2024-06-15] MEDS ORDERED: diphenhdrAMINE HCL 25 MG CAP PO PRN (16:45)
[2024-06-15 19:20] VITALS: RESP 16; O2SAT 96
[2024-06-15] MEDS: NYSTATIN TOPICAL CREAM 15GM TOP SCH (22:00)
[2024-06-15] MEDS: PRAVASTATIN SODIUM 20 MG TAB PO SCH (22:06)
[2024-06-16] VITALS (7 sets, daily range): BP systolic 92–132; BP diastolic 58–75; PULSE 69–82; RESP 16–22; TEMP 97.8–98.2; O2SAT 95–98
[2024-06-16 06:07] LABS: Anion Gap 8 (5-15); Carbon Dioxide 25 mmol/L (20-31); Chloride 106 mmol/L (98-107); Potassium 3.5 mmol/L (3.5-5.1); Sodium 139 mmol/L (136-145)
[2024-06-16 06:08] LABS: Calcium 10.2 mg/dL (8.7-10.4)
[2024-06-16 06:12] LABS: Basophils # (auto) 0 10 ^3/uL (0-0.2); Basophils % (auto) 0.1 % (0.0-2.0); Eosinophils # (auto) 0 10 ^3/uL (0-0.8); Eosinophils % (auto) 0.1 % (0.0-7.0); Glucose 134 mg/dL (74-106); Hematocrit 43.7 % (36.0-46.0); Hemoglobin 14.8 g/dL (12.2-16.2); Lymphocytes # (auto) 1.8 10 ^3/uL (0.4-5.4); Lymphocytes % (auto) 9.8 % (10.0-50.0); Mean Corpuscular Hemoglobin 27.9 pg (28.0-32.0); Mean Corpuscular Hgb Conc. 33.8 g/dL (32.0-36.0); Mean Corpuscular Volume 82.4 fL (80.0-100.0); Monocytes # (auto) 1.3 10 ^3/uL (0-1.3); Monocytes % (auto) 7.3 % (0.0-12.0); Neutrophils # (auto) 14.9 10 ^3/uL (1.6-8.6); Neutrophils % (auto) 82.7 % (37.0-80.0); Nucleated Red Blood Cells % 0.1 %; Platelet Count (auto) 281 10^3/uL (140-450); Red Blood Cells 5.31 10^6/uL (4.0-5.20)
[2024-06-16 06:13] LABS: BUN/Creatinine Ratio 33.3 (10.0-20.0)
[2024-06-16 06:34] LABS: Blood Urea Nitrogen 32 mg/dL (9-23)
[2024-06-16 06:37] LABS: Erythrocyte Sedimentation Rate 39 mm/hr (0-20)
[2024-06-16 06:57] LABS: CRP High Sensitivity 7.07 mg/dL (<1.0)
[2024-06-16] MEDS: FLORASTOR (S. BOULARDII) 250 MG CAP PO SCH (09:43)
[2024-06-17 01:00] VITALS: BP 123/82; PULSE 86; RESP 20; TEMP 97.7; O2SAT 97
[2024-06-17 05:00] VITALS: BP 111/63; PULSE 76; RESP 14; TEMP 98.2; O2SAT 98
[2024-06-17 09:00] VITALS: BP 117/75; PULSE 87; RESP 16; TEMP 97.5; O2SAT 98
[2024-06-17 13:00] VITALS: BP 103/61; PULSE 83; RESP 16; TEMP 97.9; O2SAT 98
[2024-06-17] MEDS ORDERED: CLIN150C PO (15:03)
[2024-06-17] MEDS ORDERED: NYST-23 TOP (15:03)
== END 2024-06-17 16:19 | disposition home or self-care (01) | DRG 385 ==
LOC: ER 19:18 → OVERFLOW 22:44 → WEST WING 06-16 03:00
PROVIDERS: ADMIT Nurse Practitioner; ATTEND Nurse Practitioner Acute Care
DX: N61.0 Mastitis without abscess (principal); I50.33 Acute on chronic diastolic (congestive) heart failure; Z20.822 Contact with and (suspected) exposure to COVID-19; I11.0 Hypertensive heart disease with heart failure; E11.9 Type 2 diabetes mellitus without complications; E66.9 Obesity, unspecified; Z85.3 Personal history of malignant neoplasm of breast; Z68.41 Body mass index [BMI] 40.0-44.9, adult; Z79.899 Other long term (current) drug therapy; Z79.82 Long term (current) use of aspirin
CPT/HCPCS: 36415; 80048; 81001; 82962; 83605; 85007; 85025; 85027; 85652; 86141; 87040; 87426; 87804; G0378; J1815; J3490

== ENCOUNTER → 2024-08-10 | Outpatient (CLI) | payer MEDICAID ==
[~2024-08-10] MED LIST changes: -CARV3.1240 PO; +CLIN150C PO; -DULO1CAP5 PO; -IBUP-1456 PO; -METH-1182 PO; +NYST-23 TOP
== END | disposition home or self-care (01) ==
LOC: Rad HDHVI 09:52
PROVIDERS: ATTEND Internal Medicine Cardiovascular Disease
DX: I11.0 Hypertensive heart disease with heart failure (principal); I50.23 Acute on chronic systolic (congestive) heart failure
CPT/HCPCS: 93306